=== PATIENT | female | born 1940 | race Caucasian/White ===

== ENCOUNTER 2023-10-20 16:00 | Emergency (ER) | payer OTHER ==
[~2023-10-20] VITALS: Ht 167.6 cm; Wt 103.2 kg
[2023-10-20 16:18] VITALS: BP 125/76; PULSE 119; RESP 14; O2SAT 97
== END 2023-10-20 20:29 | disposition left against medical advice (07) ==
LOC: ER 17:29
DX: S01.312A Laceration without foreign body of left ear, initial encounter (principal); M25.512 Pain in left shoulder; M25.562 Pain in left knee; Z53.21 Procedure and treatment not carried out due to patient leaving prior to being seen by health care provider; Y04.8XXA Assault by other bodily force, initial encounter; Y93.89 Activity, other specified; Y92.89 Other specified places as the place of occurrence of the external cause; Y99.8 Other external cause status
CPT/HCPCS: 70450; 73030; 73562